=== PATIENT | male | born 1970 | race Caucasian/White ===

== ENCOUNTER 2021-11-23 00:58 | Emergency (ER) | payer BC ==
[2021-11-23 01:58] LABS: BASO # 0.02 K/mm3 (0.02-0.10); EOS # 0.14 K/mm3 (0.04-0.40); EOS % 1.5 % (0.0-4.0); HEMATOCRIT 44.3 % (42.0-52.0); HEMOGLOBIN 15.1 g/dL (13.5-18.0); LYMPH# 1.94 K/mm3 (1.50-4.00); MEAN CELL VOLUME 90 fl (78-100); MEAN CORPUSCULAR HEMOGLOBIN 31 pg (27-31); MEAN CORPUSCULAR HGB CONC 34 g/dL (33-37); MEAN PLATELET VOLUME 13.2 fl (7.4-10.4); MONO # 0.63 K/mm3 (0.20-0.80); NEU # 6.43 K/mm3 (1.40-6.50); PLATELET COUNT 110 K/mm3 (130-400); RED BLOOD COUNT 4.91 M/mm3 (4.20-5.60); RED CELL DISTRIBUTION WIDTH 11.7 % (11.5-14.5); WHITE BLOOD COUNT 9.2 K/mm3 (4.8-10.8)
[2021-11-23 02:13] LABS: POTASSIUM 3.8 mmol/L (3.5-5.1)
[2021-11-23 02:14] LABS: CALCIUM 9.5 mg/dL (8.3-10.5)
[2021-11-23 02:28] LABS: URINE APPEARANCE HAZY; URINE COLOR YELLOW
[2021-11-23 02:29] LABS: URINE BILIRUBIN NEGATIVE (NEGATIVE); URINE BLOOD 250 ery/uL (NEGATIVE); URINE KETONE 3+ (NEGATIVE); URINE LEUKOCYTE ESTERASE TRACE (NEGATIVE); URINE NITRATE NEGATIVE (NEGATIVE); URINE PROTEIN(semi-quant) TRACE (NEGATIVE); URINE UROBILINOGEN NORMAL (NORMAL)
[2021-11-23] MEDS ORDERED: ZOFRAN ODT4 MG PO (03:46)
[2021-11-23] MEDS ORDERED: PERCOCET 325 MG1 TA2 PO (03:46)
[2021-11-23] MEDS ORDERED: FLOMAX0.4 MG PO (03:46)
[2021-11-23 04:14] VITALS: BP 126/73
== END 2021-11-23 04:15 | disposition home or self-care (01) ==
LOC: ED 00:58
PROVIDERS: Family Medicine
DX: E10.9 Type 1 diabetes mellitus without complications (principal); N23 Unspecified renal colic; Z87.442 Personal history of urinary calculi
CPT/HCPCS: J1885; J3010